=== PATIENT | male | born 1965 | race Caucasian/White ===

== ENCOUNTER 2016-06-06 09:32 | Emergency (ER) | payer OTHER ==
[~2016-06-06] VITALS: Ht 182.9 cm; Wt 111.3 kg
[2016-06-06 09:34] VITALS: BP 154/101; PULSE 74; RESP 16; TEMP 98; O2SAT 96
[2016-06-06] MEDS ORDERED: INDO50CA PO (09:55)
[2016-06-06 10:11] VITALS: O2SAT 97
[2016-06-06] MEDS ORDERED: SODIUM CHLORIDE 0.9% FLUSH 5 ML FLUSH IVF PRN (10:15)
[2016-06-06 10:26] LABS: AUTOMATED NEUTROPHIL # 2.3 TH/MM3 (1.8-7.7); BASOPHIL % 0.5 % (0.0-2.0); EOSINOPHIL # 0.1 TH/MM3 (0-0.4); EOSINOPHIL % 1.3 % (0.0-4.0); HEMATOCRIT 41.5 % (39.0-51.0); HEMO FLAGS DIFF FINAL; LYMPH % 33.6 % (9.0-44.0); LYMPHOCYTE # 1.4 TH/MM3 (1.0-4.8); MEAN CELL VOLUME 86.4 FL (80.0-100.0); MEAN CORPUSCULAR HEMOGLOBIN 29.7 PG (27.0-34.0); MEAN CORPUSCULAR HGB CONC 34.4 % (32.0-36.0); MONO % 9.2 % (0.0-8.0); NEUT % 55.4 % (16.0-70.0); PLATELET COUNT 207 TH/MM3 (150-450); RED CELL DISTRIBUTION WIDTH 12.2 % (11.6-17.2); WHITE BLOOD COUNT 4.2 TH/MM3 (4.0-11.0)
[2016-06-06 10:36] LABS: CHLORIDE 106 MEQ/L (98-107); POTASSIUM 4.3 MEQ/L (3.5-5.1); SODIUM (NA) 140 MEQ/L (136-145)
[2016-06-06 10:43] LABS: ANION GAP 10 MEQ/L (5-15); BICARBONATE 24.5 MEQ/L (21.0-32.0); BLOOD UREA NITROGEN 22 MG/DL (7-18)
[2016-06-06 10:46] LABS: ALT (GPT) 51 U/L (12-78); AST (GOT) 35 U/L (15-37); GLOMERULAR FILTRATION RATE 59 ML/MIN (>89)
[2016-06-06 10:47] LABS: TOTAL BILIRUBIN ADULT 0.5 MG/DL (0.2-1.0)
--- NOTE | 2016-06-06 10:48 | RADHPO ---
EXAM DATE/TIME: 06/06/2016 10:35 [place] COMPARISON: No previous studies available for comparison. INDICATIONS : Dizziness and headache. RADIATION DOSE: 59.73 CTDIvol (mGy) MEDICAL HISTORY : Gout. SURGICAL HISTORY : None. ENCOUNTER: Initial ACUITY: 2 days PAIN SCALE: 2/10 LOCATION: cranial TECHNIQUE: Multiple contiguous axial images were obtained of the head. Using automated exposure control and adj ustment of the mA and/or kV according to patient size, radiation dose was kept as low as reasonably a chievable to obtain optimal diagnostic quality images. FINDINGS: CEREBRUM: The ventricles are normal for age. No evidence of midline shift, mass lesion, hemorrhage or acute in farction. No extra-axial fluid collections are seen. POSTERIOR FOSSA: The cerebellum and brainstem are intact. The 4th ventricle is midline. The cerebellopontine angle i s unremarkable. EXTRACRANIAL: The visualized portion of the orbits is intact. SKULL: The calvaria is intact. No evidence of skull fracture. CONCLUSION: Negative for an acute process.. Jorge Bone MD FACR on June 06, 2016 at 10:46 Board Certified Radiologist. This report was verified electronically.
[2016-06-06 10:49] LABS: ALKALINE PHOSPHATASE 53 U/L (45-117)
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
[2016-06-06 11:39] VITALS: BP 153/78; PULSE 62; RESP 17; O2SAT 98
--- NOTE | 2016-06-07 10:37 | EKG ---
Date Performed: 06/06/2016 Time Performed: 11:40:44 PTAGE: 51 years EKG: Sinus rhythm Poor R wave progression - probable normal variant Inferior T wave changes are nonspecific Borderline ECG NO PREVIOUS TRACING DOCTOR: Raji Trejo Interpretating Date/Time 06/07/2016 10:34:25
== END 2016-06-06 12:08 | disposition home or self-care (01) ==
LOC: PHED 09:32
DX: R42 Dizziness and giddiness (principal); R20.0 Anesthesia of skin; M10.9 Gout, unspecified; R94.31 Abnormal electrocardiogram [ECG] [EKG]
CPT/HCPCS: 70450; 80053; 85025; 93005